=== PATIENT | female | born 1955 | race Caucasian/White ===

== ENCOUNTER 2017-01-27 09:18 | Day surgery (SDC) | payer MEDICARE ==
[2017-01-27] MEDS ORDERED: Lactated Ringer's 500 ML IV ONE (09:37)
[2017-01-27] MEDS ORDERED: Propofol 10 mg/ml Inj (20 ML) ONE (10:13)
[2017-01-27 10:42] VITALS: TEMP 98
[2017-01-27 10:53] VITALS: BP 105/52; PULSE 67; RESP 18; O2SAT 100
== END 2017-01-27 11:11 | disposition home or self-care (01) ==
LOC: H.ENDO 09:18
PROVIDERS: ATTEND Internal Medicine Gastroenterology
DX: Z86.010 Personal history of colon polyps (principal); K64.8 Other hemorrhoids
CPT/HCPCS: G0105; J2001; J2704; J7120

== ENCOUNTER 2018-10-25 06:16 | Inpatient (IN) | payer MEDICARE ==
[2018-10-11 15:19] VITALS: BMI 22.2
[2018-10-25] MEDS ORDERED: Lactated Ringer's 1,000 ML IV ONE ×2 (07:00→09:00)
[2018-10-25] MEDS ORDERED: Desflurane Inhalation Anesthetic Liq (240 ml) ONE (07:14)
[2018-10-25] MEDS ORDERED: ceFAZolin IV 1 gm in Dextrose 0 GM/0 ML BAG IVPB ONE (07:15)
[2018-10-25] MEDS ORDERED: Lidocaine 1% w Epi 1:100,000 Inj ONE (07:15)
[2018-10-25] MEDS ORDERED: Bupivacaine 0.5% Inj(30mL) ONE (07:15)
[2018-10-25] MEDS ORDERED: APROTININ/FIBRINOGEN(TISSEEL) ONE (07:16)
[2018-10-25] MEDS ORDERED: Midazolam 2 MG/2 ML VIAL ONE (07:22)
[2018-10-25] MEDS ORDERED: Succinylcholine Chloride 20 mg/ml Syr (5 ml) IV ONE (07:22)
[2018-10-25] MEDS ORDERED: Rocuronium 10 mg/ml (5 ml) ONE (07:22)
[2018-10-25] MEDS ORDERED: Lidocaine 4% (Laryng-O-Jet) Kit MM ONE (07:22)
[2018-10-25] MEDS ORDERED: Propofol 10 mg/ml Inj (20 ML) ONE (07:22)
--- NOTE | 2018-10-25 07:30 | CP.PCM.CON ---
History of Present Illness - History of Present Illness History of Present Illness: Neurosurgical H&P/consult: Dr. Ward Patient is a 63 y/o female who presents for elective lumbar laminotomy. The patient has had chronic lower back pain for many years which has progressively worsened over the past few months. She has been experiencing LE weakness since the summer with history of multiple falls. She has had occassional pain/numbness/tingling traveling to both LE over the past few months. The pain has hindered her daily activities, especially walking, turning and transferring. She has tried and failed conservative management with oral medications, chiropractic treatment and exercises and has opted for surgical management. She denies any bowel/bladder dysfunction and saddle paresthesias. She also denies CP/SOB/N/V/D/fever/dysuria/melena. PMD: Khurram Bocanegra MD PMH: depression, bipolar, chronic sinusitis PSH: tonsillectomy meds: ASA 81mg, claritin, klonopin, lamictal, paxil, seroquel, wellbutrin allergy: NKDA SH: denies ETOH/tobacco use. admits to marijuana use Review of Systems - Review of Systems All systems: reviewed and no additional remarkable complaints except Review of Systems: as per HPI Past Patient History - Past Medical History & Family History Past Medical History?: Yes Past Family History: Reviewed and not pertinent - Past Social History Smoking Status: Never Smoked Alcohol: None Drugs: Cannabis - CARDIAC Hx Cardiac Disorders: No - PULMONARY Hx Respiratory Disorders: No - NEUROLOGICAL Hx Neurological Disorder: No - HEENT Hx HEENT Problems: No - RENAL Hx Chronic Kidney Disease: No - ENDOCRINE/METABOLIC Hx Endocrine Disorders: No - HEMATOLOGICAL/ONCOLOGICAL Hx Blood Disorders: No - INTEGUMENTARY Hx Dermatological Problems: No - MUSCULOSKELETAL/RHEUMATOLOGICAL Hx Musculoskeletal Disorders: Yes Hx Back Pain: Yes - GASTROINTESTINAL Hx Gastrointestinal Disorders: Yes - GENITOURINARY/GYNECOLOGICAL Hx Genitourinary Disorders: No - PSYCHIATRIC Hx Psychophysiologic Disorder: Yes Hx Bipolar Disorder: Yes - SURGICAL HISTORY Hx Surgeries: Yes Hx Tonsillectomy: Yes - ANESTHESIA Hx Anesthesia: Yes Hx Anesthesia Reactions: No Hx Malignant Hyperthermia: No Has any member of the family had a problem w/ anesthesia?: No Meds Allergies/Adverse Reactions: Allergies Allergy/AdvReac Type Severity Reaction Status Date / Time Penicillins Allergy Intermediate RASH Verified 10/11/18 15:04 OYSTERS Allergy RASH Uncoded 10/11/18 15:23 Physical Exam - Constitutional Appears: Well, No Acute Distress - Head Exam Head Exam: ATRAUMATIC, NORMOCEPHALIC - Eye Exam Eye Exam: EOMI, Normal appearance, PERRL - ENT Exam ENT Exam: Mucous Membranes Moist - Neck Exam Neck exam: Positive for: Normal Inspection - Respiratory Exam Respiratory Exam: NORMAL BREATHING PATTERN - Cardiovascular Exam Cardiovascular Exam: +S1, +S2 - GI/Abdominal Exam GI & Abdominal Exam: Soft. absent: Tenderness - Back Exam Back exam: NORMAL INSPECTION - Expanded Back Exam Expanded Back exam: Negative Straight Leg Raising: Left, Right - Neurological Exam Neurological exam: Alert, CN II-XII Intact, Oriented x3, Reflexes Normal Additional comments: lumbar midline tenderness, no paraspinal tenderness no lesion/masses/deformities sensation intact SP/DP/TN motor intact EHL/FHl/TA/G - Psychiatric Exam Psychiatric exam: Normal Affect - Skin Skin Exam: Normal Color, Warm Results - Labs Labs: Laboratory Results - last 24 hr 10/25/18 06:35 BBK History Checked No verified bt Assessment & Plan (1) Lumbar spondylosis Assessment and Plan: -OR today for lumbar laminotomy and fusion -Risks/benefits/alternatives were explained to patient who understands and agrees to proceed with above procedure -NPO -Admit to Dr. Bocanegra -above d/w Dr. Ward in agreement Status: Acute
[2018-10-25] MEDS ORDERED: Dexamethasone 4 mg/1 ml ONE (08:20)
[2018-10-25] MEDS ORDERED: Neostigmine 1:1000 (1 mg/ml) Inj ONE (08:56)
[2018-10-25] MEDS ORDERED: HEMOSTATIC MATRIX 10 ML DIS.NEEDLE TOP ONE (09:00)
[2018-10-25] MEDS ORDERED: Bupivacaine 0.5% 50 ML IJ ONE ×2 (09:18→09:30)
--- NOTE | 2018-10-25 09:51 | PCM.SURG1 ---
Surgeon's Initial Post Op Note - Surgeon's Notes Surgeon: Clark Ward MD Psychologist Research Assistant: Jimenez Reza PA-C Type of Anesthesia: General Endo Anesthesia Administered By: Varinder Naranjo MD Pre-Operative Diagnosis: Lumbar spondylosis Operative Findings: see complete operative report Post-Operative Diagnosis: as above Operation Performed: L2-L3 laminotomy and instrumental fusion Specimen/Specimens Removed: none Estimated Blood Loss: EBL {In ML}: 50 Blood Products Given: N/A Drains Used: William Cadena (x 2 b/l) Post-Op Condition: Good Date of Surgery/Procedure: 10/25/18 Time of Surgery/Procedure: 08:06
[2018-10-25] MEDS ORDERED: Oxycodone/Acetaminophen 5/325 mg Tab PO PRN ×2 (09:53)
[2018-10-25] MEDS ORDERED: Dexamethasone 4 mg/1 ml IVP PRN (10:02)
[2018-10-25] MEDS ORDERED: HYDROmorphone 0.5 mg/0.5 ml ISec IVP PRN ×2 (10:02→11:36)
--- NOTE | 2018-10-25 13:50 | OP ---
PROCEDURE DATE: 10/25/2018 PREOPERATIVE DIAGNOSIS: Lumbar spondylosis. POSTOPERATIVE DIAGNOSIS: Lumbar spondylosis. PROCEDURES: L2-3 lumbar laminectomy, L2-3 pedicle screw fixation instrumentation using spinal elements, L2-3 posterolateral fusion. SURGEON: Clark Ward MD. PER DIEM PHYSICAL THERAPIST ASSISTANT: Jimenez Reza. Jimenez Reza is a physician community program assistant, who helped me in performing the surgery, stayed throughout the case from the beginning to the end. DESCRIPTION OF PROCEDURE: The patient was brought to the operating room and after general endotracheal anesthesia, placed in a prone position on a William table. Care was taken to protect all the pressure points. Back of the lumbar area thoroughly prepped and draped in a same sterile manner after marking the skin incisions for lumbar laminectomy and fusion at L2-3. After prepping and draping the area, skin has been incised. Bleeding skin has been controlled with bipolar junior assistant manager. Using a Bovie junior assistant manager, paraspinal muscles had been detached, attachments of spinous process, lamina on the left side at L2-3. Deep retractor had been applied. Identification of levels has been done with the help of fluoroscopy. By using a traditional landmark, point of entry has been noted at pedicles of L2 and L3. Initially, K-wire and later drill has been used around the pedicle. Polyaxial titanium screws of spinal elements have been placed of the pedicles of L2 and L3 under fluoroscopy care control. The bone was found to be soft in this area of the pedicles and titanium rods have been placed. Cap nuts have been used in order to secure them. After that, under microscopic magnification and illumination, the spine process of L2-3 have been removed. By using a high-speed drill, the lamina and medial port of the facets have been drilled to actual thickness. By using a fine Kerrison punch, thinned out the lamina, medial part of the facets, ligamentum flavum which was buckled and thickened has been removed decompressing the area of L2-3. After the lateral aspect of facet joint and transverse process have been decorticated, demineralized bone was placed in the area achieving a posterolateral fusion. After that, hemostasis was best achieved. William drain was placed in the wound and brought out through a separate stab neck skin incision. Muscles and fascia were closed with 1 Vicryl, subcutaneous tissue with 3-0 Vicryl, and the skin has been with intradermal 3-0 Vicryl stitches. The patient tolerated the procedure. After the procedure, mobilized to the recovery room. Clark Ward MD
[2018-10-25] MEDS ORDERED: Dexamethasone 4 MG in Sodium Chloride 0.9% 50 ML IVPB SCH (14:13)
--- NOTE | 2018-10-25 16:23 | RAD ---
Date of service: 10/25/2018 PROCEDURE: Intraoperative Fluoroscopy. HISTORY: PLIF FINDINGS: Fluoroscopic assistance was provided for laminectomy and fusion. Please refer to the operative report from JORGE Machado. Total fluoroscopic time (continuous mode) utilized during the procedure 39.9 seconds. Total exam DLP: 18.12 (mGy).
[2018-10-25] MEDS: Dexamethasone 4 mg/1 ml IV SCH ×2 (16:40→22:17)
[2018-10-25] MEDS: Clindamycin 600mg/50ml D5W 600 MG/50 ML VIAL IVPB SCH (17:24)
--- NOTE | 2018-10-25 18:27 | CP.PCM.HP ---
History of Present Illness - History of Present Illness History of Present Illness: Patient is a 63 y/o female who presents for elective lumbar laminotomy. The patient has Hx of chronic lower back pain for many years. This condition has progressively worsened over the past few months. She has been experiencing LE weakness for several months of 2017 with history of multiple falls. She c/o occasional pain/numbness/tingling traveling to both LE. The discomfort and pain was interfering with her daily activities,walking, turning and transferring. She has tried and failed conservative management with oral medications, chiropractic treatment and exercises and has opted for surgical management. She denies any bowel/bladder dysfunction and saddle paresthesias. She also denies CP/SOB/N/V/D/fever/dysuria/melena. At present in post OP comfortable not in distress in good mood. Present on Admission - Present on Admission Any Indicators Present on Admission: No Review of Systems - Constitutional Constitutional: As Per HPI - EENT Eyes: As Per HPI - Cardiovascular Cardiovascular: As Per HPI - Respiratory Respiratory: As Per HPI - Gastrointestinal Gastrointestinal: As Per HPI - Musculoskeletal Musculoskeletal: As Per HPI - Neurological Neurological: As Per HPI - Endocrine Endocrine: As Per HPI Past Patient History - Past Medical History & Family History Past Medical History?: Yes Past Family History: Reviewed and not pertinent - Past Social History Smoking Status: Never Smoked Alcohol: None Drugs: Cannabis - CARDIAC Hx Cardiac Disorders: No - PULMONARY Hx Respiratory Disorders: No - NEUROLOGICAL Hx Neurological Disorder: No - HEENT Hx HEENT Problems: No - RENAL Hx Chronic Kidney Disease: No - ENDOCRINE/METABOLIC Hx Endocrine Disorders: No - HEMATOLOGICAL/ONCOLOGICAL Hx Blood Disorders: No - INTEGUMENTARY Hx Dermatological Problems: No - MUSCULOSKELETAL/RHEUMATOLOGICAL Hx Musculoskeletal Disorders: Yes Hx Back Pain: Yes - GASTROINTESTINAL Hx Gastrointestinal Disorders: Yes - GENITOURINARY/GYNECOLOGICAL Hx Genitourinary Disorders: No - PSYCHIATRIC Hx Psychophysiologic Disorder: Yes Hx Bipolar Disorder: Yes - SURGICAL HISTORY Hx Surgeries: Yes Hx Tonsillectomy: Yes - ANESTHESIA Hx Anesthesia: Yes Hx Anesthesia Reactions: No Hx Malignant Hyperthermia: No Has any member of the family had a problem w/ anesthesia?: No Meds Allergies/Adverse Reactions: Allergies Allergy/AdvReac Type Severity Reaction Status Date / Time Penicillins Allergy Intermediate RASH Verified 10/11/18 15:04 OYSTERS Allergy RASH Uncoded 10/11/18 15:23 Physical Exam - Constitutional Appears: Non-toxic - Head Exam Head Exam: ATRAUMATIC, NORMAL INSPECTION, NORMOCEPHALIC - Eye Exam Eye Exam: Normal appearance - ENT Exam ENT Exam: Mucous Membranes Moist - Neck Exam Neck exam: Positive for: Normal Inspection - Respiratory Exam Respiratory Exam: Clear to Auscultation Bilateral - Cardiovascular Exam Cardiovascular Exam: REGULAR RHYTHM, +S1, +S2 - GI/Abdominal Exam GI & Abdominal Exam: Normal Bowel Sounds - Rectal Exam Rectal Exam: Deferred - Extremities Exam Extremities exam: Positive for: normal inspection - Neurological Exam Neurological exam: Abnormal Gait, Alert, CN II-XII Intact, Oriented x3 - Psychiatric Exam Psychiatric exam: Normal Affect - Skin Skin Exam: Normal Color Results - Vital Signs Recent Vital Signs: Last Vital Signs Temp 98 F 10/25/18 16:30 Pulse 75 10/25/18 16:30 Resp 20 10/25/18 16:30 BP 100/56 L 10/25/18 16:30 Pulse Ox 98 10/25/18 16:30 - Labs Labs: Laboratory Results - last 24 hr 10/25/18 10/25/18 06:35 08:14 Blood Type A NEGATIVE Blood Type Confirm A NEGATIVE Antibody Screen Negative BBK History Checked No verified bt Assessment & Plan (1) Lumbar spondylosis Status: Acute
[2018-10-25] MEDS: Morphine 4 MG/ML VIAL IVP PRN (21:20)
[2018-10-25] MEDS: Docusate-Senna 50 mg-8.6 mg Tab PO SCH (22:17)
[2018-10-26] MEDS: Clindamycin 600mg/50ml D5W 600 MG/50 ML VIAL IVPB SCH ×3 (00:47→16:31)
[2018-10-26] MEDS: Dexamethasone 4 mg/1 ml IV SCH ×3 (04:00→16:32)
[2018-10-26 04:41] VITALS: RESP 20
[2018-10-26 06:25] LABS: HEMOGLOBIN 11.5 g/dL (12.0-16.0); MEAN CELL VOLUME 93.3 fl (81.0-99.0); MEAN CORPUSCULAR HEMOGLOBIN 31.8 pg (27.0-31.0); MEAN CORPUSCULAR HGB CONC 34.1 g/dL (33.0-37.0); RBC 3.61 Mil/uL (3.80-5.20); WHITE BLOOD COUNT 10.9 K/uL (4.8-10.8)
[2018-10-26 06:35] LABS: BLOOD UREA NITROGEN 20 mg/dl (7-17); CALCIUM 9.3 mg/dL (8.4-10.2)
[2018-10-26 06:56] LABS: GFR NON-AFRICAN AMERICAN 56
--- NOTE | 2018-10-26 08:46 | CP.PCM.PN ---
Subjective - Date & Time of Evaluation Date of Evaluation: 10/26/18 Time of Evaluation: 07:45 - Subjective Subjective: Patient seen and examined at bedside comfortable. Pain well controlled. Tolerated PT well yesterday. Able to transfer to bathroom unassisted. No acute events overnight, no other complaints. Denies CP/SOB/N/fever. Objective - Vital Signs/Intake and Output Vital Signs (last 24 hours): Temp Pulse Resp BP Pulse Ox 98 F 65 20 149/82 99 10/26/18 08:25 10/26/18 08:25 10/26/18 08:25 10/26/18 08:25 10/26/18 08:25 Intake and Output: 10/26/18 10/26/18 06:59 18:59 Intake Total 800 Output Total 180 Balance 620 - Medications Medications: Current Medications Acetaminophen (Tylenol 325mg Tab) 650 mg PO Q4 PRN PRN Reason: Fever 101 degrees fahrenheit Aspirin (Aspirin Chewable) 81 mg PO DAILY [facility] Bupropion HCl (Wellbutrin) 375 mg PO DAILY [facility] Clonazepam (Klonopin) 1 mg PO BID [facility] Last Admin: 10/25/18 17:33 Dose: Not Given Cyclobenzaprine HCl (Flexeril) 10 mg PO Q8 PRN PRN Reason: Muscle spasm Dexamethasone (Decadron Inj) 4 mg IV Q6 [facility] Last Admin: 10/26/18 04:00 Dose: Not Given Clindamycin Phosphate (Cleocin) 600 mg in 50 mls @ 100 mls/hr IVPB Q8 [facility]; Protocol Last Admin: 10/26/18 00:47 Dose: 100 mls/hr Lactated Ringer's (Lactated Ringer's) 1,000 mls @ 100 mls/hr IV .Q10H [facility] Lactated Ringer's (Lactated Ringer's) 1,000 mls @ 150 mls/hr IV .Q6H40M [facility] Lamotrigine (Lamictal) 150 mg PO DAILY [facility] Morphine Sulfate (Morphine) 2 mg IVP Q4 PRN PRN Reason: Pain, severe (8-10) Last Admin: 10/25/18 21:20 Dose: 2 mg Ondansetron HCl (Zofran Inj) 4 mg IVP ONCE PRN PRN Reason: Nausea/Vomiting Oxycodone/Acetaminophen (Percocet 5/325 Mg Tab) 2 tab PO Q4 PRN PRN Reason: Pain, moderate (4-7) Stop: 10/28/18 09:54 Last Admin: 10/25/18 17:29 Dose: 2 tab Oxycodone/Acetaminophen (Percocet 5/325 Mg Tab) 1 tab PO Q4 PRN PRN Reason: Pain, Mild (1-3) Stop: 10/28/18 09:54 Paroxetine HCl (Paxil) 20 mg PO BID [facility] Last Admin: 10/25/18 17:32 Dose: Not Given Quetiapine Fumarate (Seroquel) 75 mg PO BID [facility] Last Admin: 10/25/18 17:24 Dose: 75 mg Senna/Docusate Sodium (Senokot S 50 Mg-8.6 Mg) 2 tab PO HS [facility] Last Admin: 10/25/18 22:17 Dose: 2 tab - Labs Labs: 10/26/18 05:55 10/26/18 05:55 - Back Exam Additional comments: Dressings intact, mild bloody drainage from drain sites mild bloody drainage to BUSHRA Drains (90cc b/l in 24 hrs) mild cristy-incisional tenderness sensation intact SP/DP/TN motor intact EHL/FHL neg SLR b/l Assessment and Plan (1) Lumbar spondylosis Assessment & Plan: POD#1 s/p L2-3 laminotomy and fusion -Maintain BUSHRA drains, monitor output, possible removal tomorrow -PT/OT -Decadron taper -d/w planning -above d/w Dr. Ward in agreement Status: Acute
[2018-10-26] MEDS: Lactated Ringer's 1,000 ML IV SCH ×4 (09:43→16:35)
[2018-10-26] MEDS: Morphine 4 MG/ML VIAL IVP PRN ×2 (10:04→21:19)
--- NOTE | 2018-10-26 11:16 | CP.PCM.PN ---
Subjective - Date & Time of Evaluation Date of Evaluation: 10/26/18 Time of Evaluation: 11:17 - Subjective Subjective: Patient improving well. Still c/o same discomfort controlled with analgesics. Objective - Vital Signs/Intake and Output Vital Signs (last 24 hours): Temp Pulse Resp BP Pulse Ox 98 F 65 20 149/82 99 10/26/18 08:25 10/26/18 08:25 10/26/18 08:25 10/26/18 08:25 10/26/18 08:25 Intake and Output: 10/25/18 10/26/18 23:59 11:59 Intake Total 800 Output Total 175 80 Balance 625 -80 - Medications Medications: Current Medications Acetaminophen (Tylenol 325mg Tab) 650 mg PO Q4 PRN PRN Reason: Fever 101 degrees fahrenheit Aspirin (Aspirin Chewable) 81 mg PO DAILY [facility] Last Admin: 10/26/18 09:38 Dose: 81 mg Bupropion HCl (Wellbutrin) 375 mg PO DAILY [facility] Last Admin: 10/26/18 09:45 Dose: 375 mg Clonazepam (Klonopin) 1 mg PO BID [facility] Last Admin: 10/26/18 09:43 Dose: 1 mg Cyclobenzaprine HCl (Flexeril) 10 mg PO Q8 PRN PRN Reason: Muscle spasm Dexamethasone (Decadron Inj) 4 mg IV Q6 [facility] Last Admin: 10/26/18 09:38 Dose: 4 mg Clindamycin Phosphate (Cleocin) 600 mg in 50 mls @ 100 mls/hr IVPB Q8 [facility]; Protocol Last Admin: 10/26/18 09:37 Dose: 100 mls/hr Lactated Ringer's (Lactated Ringer's) 1,000 mls @ 100 mls/hr IV .Q10H [facility] Last Admin: 10/26/18 09:43 Dose: Not Given Lactated Ringer's (Lactated Ringer's) 1,000 mls @ 150 mls/hr IV .Q6H40M [facility] Last Admin: 10/26/18 09:58 Dose: Not Given Lamotrigine (Lamictal) 150 mg PO DAILY [facility] Last Admin: 10/26/18 09:44 Dose: 150 mg Morphine Sulfate (Morphine) 2 mg IVP Q4 PRN PRN Reason: Pain, severe (8-10) Last Admin: 10/26/18 10:04 Dose: 2 mg Ondansetron HCl (Zofran Inj) 4 mg IVP ONCE PRN PRN Reason: Nausea/Vomiting Oxycodone/Acetaminophen (Percocet 5/325 Mg Tab) 2 tab PO Q4 PRN PRN Reason: Pain, moderate (4-7) Stop: 10/28/18 09:54 Last Admin: 10/25/18 17:29 Dose: 2 tab Oxycodone/Acetaminophen (Percocet 5/325 Mg Tab) 1 tab PO Q4 PRN PRN Reason: Pain, Mild (1-3) Stop: 10/28/18 09:54 Paroxetine HCl (Paxil) 20 mg PO BID [facility] Last Admin: 10/26/18 09:44 Dose: 20 mg Quetiapine Fumarate (Seroquel) 75 mg PO BID [facility] Last Admin: 10/26/18 09:45 Dose: 75 mg Senna/Docusate Sodium (Senokot S 50 Mg-8.6 Mg) 2 tab PO HS [facility] Last Admin: 10/25/18 22:17 Dose: 2 tab - Labs Labs: 10/26/18 05:55 10/26/18 05:55 - Constitutional Appears: Non-toxic - Head Exam Head Exam: ATRAUMATIC, NORMAL INSPECTION, NORMOCEPHALIC - Eye Exam Eye Exam: Normal appearance - ENT Exam ENT Exam: Mucous Membranes Moist - Neck Exam Neck Exam: Full ROM - Respiratory Exam Respiratory Exam: Clear to Ausculation Bilateral - Cardiovascular Exam Cardiovascular Exam: REGULAR RHYTHM, +S1, +S2 - GI/Abdominal Exam GI & Abdominal Exam: Normal Bowel Sounds - Extremities Exam Extremities Exam: Normal Inspection - Neurological Exam Neurological Exam: Alert, Awake, Oriented x3 - Psychiatric Exam Psychiatric exam: Normal Affect - Skin Skin Exam: Normal Color Assessment and Plan (1) Lumbar spondylosis Status: Acute (2) Depression Status: Chronic (3) Schizo affective schizophrenia Status: Chronic - Assessment and Plan (Free Text) Plan: Continue present rx will follow neuro surgery consult.
[2018-10-26] MEDS: Docusate-Senna 50 mg-8.6 mg Tab PO SCH (21:20)
[2018-10-27] MEDS: Dexamethasone 4 mg/1 ml IV SCH ×2 (00:59→09:16)
[2018-10-27] MEDS: Clindamycin 600mg/50ml D5W 600 MG/50 ML VIAL IVPB SCH ×2 (00:59→09:13)
[2018-10-27 06:42] LABS: HEMOGLOBIN 11.5 g/dL (12.0-16.0); MEAN CELL VOLUME 94.4 fl (81.0-99.0); MEAN CORPUSCULAR HEMOGLOBIN 31.8 pg (27.0-31.0); MEAN CORPUSCULAR HGB CONC 33.7 g/dL (33.0-37.0); RBC 3.6 Mil/uL (3.80-5.20); RED CELL DISTRIBUTION WIDTH 13.5 % (11.5-14.5); WHITE BLOOD COUNT 10.6 K/uL (4.8-10.8)
[2018-10-27 06:56] LABS: BLOOD UREA NITROGEN 18 mg/dl (7-17); CALCIUM 9.5 mg/dL (8.4-10.2); GFR NON-AFRICAN AMERICAN 56
[2018-10-27 08:29] VITALS: BP 169/80; PULSE 84; TEMP 98.6; O2SAT 97
[2018-10-27] MEDS: Lactated Ringer's 1,000 ML IV SCH ×2 (09:12→12:07)
--- NOTE | 2018-10-27 11:28 | CP.PCM.PN ---
Subjective - Date & Time of Evaluation Date of Evaluation: 10/27/18 Time of Evaluation: 11:45 - Subjective Subjective: Patient states pain is well controlled. Tolerating pt well. Denies numbness/tingling. Objective - Vital Signs/Intake and Output Vital Signs (last 24 hours): Temp Pulse Resp BP Pulse Ox 98.6 F 84 20 169/80 H 97 10/27/18 08:28 10/27/18 08:28 10/27/18 08:28 10/27/18 08:28 10/27/18 08:28 Intake and Output: 10/27/18 10/27/18 06:59 18:59 Output Total 60 Balance -60 - Medications Medications: Current Medications Acetaminophen (Tylenol 325mg Tab) 650 mg PO Q4 PRN PRN Reason: Fever 101 degrees fahrenheit Aspirin (Aspirin Chewable) 81 mg PO DAILY [facility] Last Admin: 10/27/18 09:17 Dose: 81 mg Bupropion HCl (Wellbutrin) 375 mg PO DAILY [facility] Last Admin: 10/27/18 09:15 Dose: 375 mg Clonazepam (Klonopin) 1 mg PO BID [facility] Last Admin: 10/27/18 09:21 Dose: 1 mg Cyclobenzaprine HCl (Flexeril) 10 mg PO Q8 PRN PRN Reason: Muscle spasm Dexamethasone (Decadron Inj) 4 mg IV Q8 [facility] Last Admin: 10/27/18 09:16 Dose: 4 mg Clindamycin Phosphate (Cleocin) 600 mg in 50 mls @ 100 mls/hr IVPB Q8 [facility]; Protocol Last Admin: 10/27/18 09:13 Dose: 100 mls/hr Lactated Ringer's (Lactated Ringer's) 1,000 mls @ 100 mls/hr IV .Q10H [facility] Last Admin: 10/26/18 16:35 Dose: Not Given Lactated Ringer's (Lactated Ringer's) 1,000 mls @ 150 mls/hr IV .Q6H40M [facility] Last Admin: 10/27/18 09:12 Dose: Not Given Lamotrigine (Lamictal) 150 mg PO DAILY [facility] Last Admin: 10/27/18 09:16 Dose: 150 mg Morphine Sulfate (Morphine) 2 mg IVP Q4 PRN PRN Reason: Pain, severe (8-10) Last Admin: 10/26/18 21:19 Dose: 2 mg Ondansetron HCl (Zofran Inj) 4 mg IVP ONCE PRN PRN Reason: Nausea/Vomiting Oxycodone/Acetaminophen (Percocet 5/325 Mg Tab) 2 tab PO Q4 PRN PRN Reason: Pain, moderate (4-7) Stop: 10/28/18 09:54 Last Admin: 10/25/18 17:29 Dose: 2 tab Oxycodone/Acetaminophen (Percocet 5/325 Mg Tab) 1 tab PO Q4 PRN PRN Reason: Pain, Mild (1-3) Stop: 10/28/18 09:54 Paroxetine HCl (Paxil) 20 mg PO BID [facility] Last Admin: 10/27/18 09:14 Dose: 20 mg Quetiapine Fumarate (Seroquel) 100 mg PO DAILY [facility] Last Admin: 10/27/18 08:37 Dose: Not Given Quetiapine Fumarate (Seroquel) 100 mg PO HS [facility] Quetiapine Fumarate (Seroquel) 25 mg PO DAILY [facility] Last Admin: 10/27/18 08:37 Dose: Not Given Senna/Docusate Sodium (Senokot S 50 Mg-8.6 Mg) 2 tab PO HS [facility] Last Admin: 10/26/18 21:20 Dose: 2 tab - Labs Labs: 10/27/18 06:10 10/27/18 06:10 - Back Exam Additional comments: incision intact, dry, no erythema, JPs pulled per Dr. Ward, telfa/tegaderm dressing applied +ROM ankle/toes, sensation intact +DP/PT Pulses Assessment and Plan (1) Lumbar spondylosis Assessment & Plan: last 12 40-20cc, pull drains per Dr. Ward d/c home today pain medication and decadron taper as per Dr. Bocanegra d/w Dr. Ward, agrees with above Status: Acute
--- NOTE | 2018-10-27 13:05 | CP.PCM.DIS ---
Provider - Provider Date of Admission: 10/25/18 09:53 Attending physician: Khurram Bocanegra MD Consults: 10/25/18 09:53 Case Management Referral Routine Comment: Physician Instructions: Reason For Exam: Reason for Referral: Discharge Planning 10/26/18 08:42 Physician Consult Routine Comment: Consulting Provider: Clark Aden Consulting Physician: Clark Aden Reason for Consult: neurosurg postop mgmt Time Spent in preparation of Discharge (in minutes): 30 Diagnosis - Discharge Diagnosis (1) Lumbar spondylosis Status: Acute (2) Depression Status: Chronic (3) Schizo affective schizophrenia Status: Chronic Hospital Course - Lab Results Lab Results: Most Recent Lab Values WBC 10.6 K/uL (4.8-10.8) 10/27/18 06:10 RBC 3.60 Mil/uL (3.80-5.20) L 10/27/18 06:10 Hgb 11.5 g/dL (12.0-16.0) L 10/27/18 06:10 Hct 34.0 % (34.0-47.0) 10/27/18 06:10 MCV 94.4 fl (81.0-99.0) 10/27/18 06:10 MCH 31.8 pg (27.0-31.0) H 10/27/18 06:10 MCHC 33.7 g/dL (33.0-37.0) 10/27/18 06:10 RDW 13.5 % (11.5-14.5) 10/27/18 06:10 Plt Count 238 K/uL (130-400) 10/27/18 06:10 Sodium 141 mmol/l (132-148) 10/27/18 06:10 Potassium 4.7 MMOL/L (3.6-5.0) 10/27/18 06:10 Chloride 104 mmol/L (98-107) 10/27/18 06:10 Carbon Dioxide 29 mmol/L (22-30) 10/27/18 06:10 Anion Gap 13 (10-20) 10/27/18 06:10 BUN 18 mg/dl (7-17) H 10/27/18 06:10 Creatinine 1.0 mg/dl (0.7-1.2) 10/27/18 06:10 Est GFR ( Amer) > 60 10/27/18 06:10 Est GFR (Non-Af Amer) 56 10/27/18 06:10 Random Glucose 124 mg/dL (65-105) H 10/27/18 06:10 Calcium 9.5 mg/dL (8.4-10.2) 10/27/18 06:10 Blood Type A NEGATIVE 10/25/18 06:35 Blood Type Confirm A NEGATIVE 10/25/18 08:14 Antibody Screen Negative 10/25/18 06:35 BBK History Checked No verified bt 10/25/18 06:35 - Hospital Course Hospital Course: Patient is a 63 y/o female who presents for elective lumbar laminotomy. The patient has Hx of chronic lower back pain for many years. This condition has progressively worsened over the past few months. She has been experiencing LE weakness for several months of 2017 with history of multiple falls. She c/o occasional pain/numbness/tingling traveling to both LE. The discomfort and pain was interfering with her daily activities,walking, turning and transferring. She has tried and failed conservative management with oral medications, chiropractic treatment and exercises and has opted for surgical management. She denies any bowel/bladder dysfunction and saddle paresthesias. She also denies CP/SOB/N/V/D/fever/dysuria/melena. At present in post OP comfortable not in distress in good mood. No focal deficit, Patient cleared for dc by neurosurgery. Discharge Exam - Head Exam Head Exam: ATRAUMATIC, NORMAL INSPECTION, NORMOCEPHALIC - Eye Exam Eye Exam: EOMI, Normal appearance Pupil Exam: PERRL - ENT Exam ENT Exam: Normal Exam - Neck Exam Neck exam: Full Rom - Respiratory Exam Respiratory Exam: Clear to PA & Lateral - Cardiovascular Exam Cardiovascular Exam: REGULAR RHYTHM, +S1, +S2 - GI/Abdominal Exam GI & Abdominal Exam: Normal Bowel Sounds - Extremities Exam Extremities exam: normal inspection - Neurological Exam Neurological exam: Alert, CN II-XII Intact, Normal Gait, Oriented x3, Reflexes Normal - Psychiatric Exam Psychiatric exam: Normal Affect Discharge Plan - Follow Up Plan Condition: GOOD Disposition: HOME/ ROUTINE Instructions: Laminectomy (DC) Additional Instructions: follow up with primary MD and dr aden 1 week per surgical PA may remove dressing where draining tubes were on tuesday. Referrals: Clark Aden MD [Staff Provider] - Khurram Bocanegra MD [Family Provider] -
== END 2018-10-27 15:25 | disposition home or self-care (01) | DRG 460 ==
LOC: H.OPSURG 06:16 → H.ERHOLD 09:53 → H.MEDSURG1 12:18
PROVIDERS: ADMIT Internal Medicine; ATTEND Internal Medicine
PROC: 0SB20ZZ Excision of Lumbar Vertebral Disc, Open Approach (ICD-10-PCS; 2018-10-25)
PROC: 0SG10J1 Fusion of 2 or more Lumbar Vertebral Joints with Synthetic Substitute, Posterior Approach, Posterior Column, Open Approach (ICD-10-PCS; principal; 2018-10-25 07:30)
DX: M47.816 Spondylosis without myelopathy or radiculopathy, lumbar region (principal); G89.29 Other chronic pain; F25.8 Other schizoaffective disorders; J32.9 Chronic sinusitis, unspecified; Z91.81 History of falling; Z88.0 Allergy status to penicillin

== ENCOUNTER 2019-03-10 08:37 | Emergency (ER) | payer MEDICARE ==
[2019-03-10 08:40] VITALS: BMI 22.9
[2019-03-10 08:41] VITALS: O2SAT 97
[2019-03-10] MEDS ORDERED: Sodium Chloride 0.9% 1,000 ML IV STA (09:54)
--- NOTE | 2019-03-10 10:09 | ED PDOC ---
HPI: General Adult Time Seen by Provider: 03/10/19 09:23 Chief Complaint (Nursing): Weakness/Neurological Deficit Chief Complaint (Provider): Weakness/Neurological Deficit History Per: Patient History/Exam Limitations: no limitations Onset/Duration Of Symptoms: Other (x2 weeks) Current Symptoms Are (Timing): Still Present Additional Complaint(s): Patient is a 63 y/o female with a PMHx of bipolar disorder and colonic polyps who presents to the ED for evaluation of increasing weakness and falls for the last two weeks. Patient claims she has been feeling so weak that she has been unable to get off of her couch or bed. Furthermore, patient complains of increasing pain and weakness to right upper extremities, nausea, as well as vomiting for the past two nights. Of note, patient had lumbar surgery in October of [address] Ward in this ED and has been unable to followup since. In addition, patient reports she used to go to a Chiropractor but has not been following up. Patient denies abdominal pain and is unable to tolerate PO at this time. PCP: Dr. Khurram Bocanegra Past Medical History Reviewed: Historical Data, Nursing Documentation, Vital Signs Vital Signs: Last Vital Signs Temp 99.4 F 03/10/19 08:40 Pulse 93 H 03/10/19 08:40 Resp 17 03/10/19 08:40 BP 187/87 H 03/10/19 08:40 Pulse Ox 97 03/10/19 08:40 Primary Care Provider: Khurram Bocanegra - Medical History PMH: Bipolar Disorder, Colonic Polyps Denies: Chronic Kidney Disease - Surgical History Surgical History: Tonsillectomy Other surgeries: lumbar surgery - Family History Family History: States: No Known Family Hx - Home Medications Home Medications: Ambulatory Orders Medication Instructions Recorded Aspirin [Adult Aspirin] 81 mg PO DAILY 10/11/18 Clonazepam [Klonopin] 1 mg PO BID 10/11/18 Lamotrigine [Lamictal] 150 mg PO DAILY 10/11/18 PARoxetine [Paxil] 20 mg PO BID 10/11/18 Quetiapine Fumarate [Seroquel] 75 mg PO BID 10/11/18 buPROPion [Wellbutrin] 375 mg PO DAILY 10/11/18 Acetaminophen [Tylenol 325mg tab] 650 mg PO Q4 PRN tab 10/27/18 Aspirin [Aspirin Chewable] 81 mg PO DAILY chew 10/27/18 Dexamethasone [Decadron] 4 mg PO Q12 #4 tab 10/27/18 buPROPion [Wellbutrin] 375 mg PO DAILY tab 10/27/18 clonazePAM [Klonopin] 1 mg PO BID tab 10/27/18 lamoTRIgine [Lamictal] 150 mg PO DAILY tab 10/27/18 - Allergies Allergies/Adverse Reactions: Allergies Allergy/AdvReac Type Severity Reaction Status Date / Time Penicillins Allergy Intermediate RASH Verified 03/10/19 09:11 OYSTERS Allergy RASH Uncoded 10/11/18 15:23 Review of Systems ROS Statement: Except As Marked, All Systems Reviewed And Found Negative Gastrointestinal: Positive for: Vomiting. Negative for: Nausea, Abdominal Pain Musculoskeletal: Positive for: Other (right upper extremity pain) Neurological: Positive for: Weakness, Headache Physical Exam - Reviewed Nursing Documentation Reviewed: Yes Vital Signs Reviewed: Yes - Physical Exam Appears: Positive for: In Acute Distress (tearful) Head Exam: Positive for: ATRAUMATIC, NORMAL INSPECTION, NORMOCEPHALIC Skin: Positive for: Normal Color, Warm, DRY Eye Exam: Positive for: EOMI, Normal appearance, PERRL Neck: Positive for: Normal, Painless ROM, Supple Cardiovascular/Chest: Positive for: Regular Rate, Rhythm. Negative for: Murmur Respiratory: Positive for: Normal Breath Sounds. Negative for: Respiratory Distress Gastrointestinal/Abdominal: Positive for: Normal Exam, Soft. Negative for: Tenderness Back: Positive for: Normal Inspection, Other (incision well healing with no swelling, erythema, or exudates). Negative for: L CVA Tenderness, R CVA Tenderness, Vertebral Tenderness Extremity: Positive for: Normal ROM (of upper extremity). Negative for: Pedal Edema, Deformity Neurological/Psych: Positive for: Alert, Oriented (x3), Gait (able to lift legs, however, unable to ambulate because patient is afraid she will fall) - Laboratory Results Result Diagrams: 03/10/19 10:20 03/10/19 10:20 - ECG O2 Sat by Pulse Oximetry: 97 (RA) Pulse Ox Interpretation: Normal Medical Decision Making Medical Decision Making: Time: 0954 Impression: Increased weakness to legs and increased falls after lower back s urgery. Exacerbation of upper arm pain consistent with radiculopathy. Plan: CT Cervical Spine w/o Contrast CT Lumbar Spine w/o Contrast CMP CBC IV fluids Zofran 4 mg IVP Wrist, Left 3 Views [Rad] Time: 1108 CT Cervical FINDINGS: VERTEBRAE: No fracture. Normal alignment. No destructive bony lesion. Advanced multilevel spondylosis appreciated at the inferior cervical spine. The odontoid process is intact although degenerative changes are advanced at the C1-2 articulation. Craniocervical junction appears intact. DISCS/SPINAL CANAL/NEURAL FORAMINA: Central canal and neural foramina at C2-3 are widely patent. At C3-4, moderate right degenerative neural foraminal stenosis appreciated which also includes osteophytes encroaching the right lateral recess somewhat. Central canal is nevertheless widely patent as well as left neural foramen. At C4-5, there is a severe right degenerative neural foraminal stenosis, which appears mild at the left due to degenerative osteophytes. Limited disc bulge without significant central canal stenosis. At C5-6, there is a efom-vc-[place] right degenerative neural foraminal stenosis with none identified at the left. Central canal is widely patent. At C6-7 and C7-T1, no stenosis is appreciated grossly. PARASPINAL SOFT TISSUES: Unremarkable. OTHER FINDINGS: None. IMPRESSION: 1. No acute fracture or spondylolisthesis identified. Multilevel degenerative spondylosis affects primarily inferior cervical levels. 2. Variable upper to mid neural foraminal stenosis predominate at the right side, seen worst at the C4-5 right C5 root foramen which is severely stenosed due to uncovertebral and facet arthropathy. 3. Added characterization of the cervical spine can provided by MRI if clinically warranted. Time: 1132 CT Lumbar FINDINGS: VERTEBRAE: Minimal grade 1 spondylolisthesis at L1-2 with L1 slightly posterior to L2. No spondylolysis throughout the examination. No compression fractures appreciated throughout the lumbar spine alignment normal inferior to the L2 vertebral body level down through the sacrum. Gross degenerative disease appreciated at L1-2, L3-4 and L4-5 where there is minimal residual disc space remaining combine with vacuum disc changes though there is only limited multilevel spondylosis throughout the lumbar spine. No additional spondylolisthesis. Patient status post posterior spinal fusion by transpedicular screws at L2 and L3 which are connected by rods at each side posteriorly. Further, patient seen to be status post bilateral L2 laminectomies. DISCS/SPINAL CANAL/NEURAL FORAMINA: L1-2: Moderate degenerative bilateral neural foraminal stenoses are appreciated due to osteophytes as well as spondylolisthesis with the central canal mildly stenosed due to spondylolisthesis and posterior osteophytic ridging. L2-3: The central canal is decompressed posteriorly by laminectomies bilaterally though the upper portion of this level remains mildly stenosed. Mild bilateral neural foraminal stenosis results from disc osteophyte complex la teral components symmetrically. Prior bilateral L2 laminectomies identified. L3-4: A large posterior disc bulge is appreciated combining with prominent facet arthropathy resulting in a severe central canal stenosis with [id number] bilateral degenerative neural foraminal stenoses present. L4-5: Limited posterior disc bulge flattens the ventral thecal sac without causing generalized central canal stenosis. Mild bilateral degenerative neural foraminal stenoses are identified. L5-S1: Limited posterior osteophytic ridge is identified without central canal or neural foraminal stenosis bilaterally. PARASPINAL SOFT TISSUES: Unremarkable. OTHER FINDINGS: None. IMPRESSION: 1. No acute fractures identified. Grade 1 L1-2 spondylolisthesis is minimal in this patient status post limited bilateral laminectomies at L2 with posterior spinal fusion at L2 and L3 levels. 2. Decompression of the L2-3 disc interspace is appreciated with the upper portion at this level appearing mildly stenosed. Mild bilateral neural foraminal stenoses are degenerative at this level. 3. Severe degenerative central stenosis L3-4. 4. Limited multilevel bilateral degenerative neural foraminal stenoses. Time: [address] Bocanegra who feels patient will benefit from admission and neuro logic workup. Dr. Tommie hugo. Time: 1445 Patient now refusing to stay. Patient has been walking around exam room and has already dressed herself. Advised to followup with neurologist and primary m edical doctor. Scribe Attestation: Documented by Wing Mahmood, acting as a scribe for Tita Brian MD. Provider Scribe Attestation: All medical record entries made by the Scribe were at my direction and personally dictated by me. I have reviewed the chart and agree that the record accurately reflects my personal performance of the history, physical exam, med ica decision making, and the department course for this patient. I have also personally directed, reviewed, and agree with the discharge instructions and disposition. Disposition - Clinical Impression Clinical Impression: Degenerative disc disease, lumbar - Disposition Referrals: Glynn Rain MD [Medical Doctor] - Disposition Time: 14:45 Condition: IMPROVED Additional Instructions: Follow up with primary medical doctor, neurologist, and psychiatrist. Return to the emergency department if symptoms worsen or if new symptoms develop. Instructions: Degenerative Disc Disease (DC) Forms: [employer] ([place]) Print Language: BELARUSIAN
[2019-03-10 10:35] LABS: BASO % 0.3 % (0.0-2.0); EOS # 0.3 K/uL (0.0-0.7); LYMPH # 1.3 K/uL (1.0-4.3); MEAN CELL VOLUME 90.4 fl (81.0-99.0); MEAN CORPUSCULAR HEMOGLOBIN 30.8 pg (27.0-31.0); MEAN CORPUSCULAR HGB CONC 34.1 g/dL (33.0-37.0); MEAN PLATELET VOLUME 7.3 fl (7.2-11.7); MONO # 0.5 K/uL (0.0-0.8); NEUT # 6.3 K/uL (1.8-7.0); NEUT % 74.7 % (50.0-75.0); RBC 4.22 Mil/uL (3.80-5.20); RED CELL DISTRIBUTION WIDTH 12.9 % (11.5-14.5); WHITE BLOOD COUNT 8.4 K/uL (4.8-10.8)
[2019-03-10 10:40] LABS: ALB/GLOB RATIO 1.6 (1.0-2.1); ALBUMIN 4.6 g/dL (3.5-5.0); ALT/SGPT 26 U/L (9-52); AST/SGOT 33 U/L (14-36); BLOOD UREA NITROGEN 19 mg/dl (7-17); CALCIUM 9.5 mg/dL (8.4-10.2); GFR NON-AFRICAN AMERICAN 50
--- NOTE | 2019-03-10 11:12 | CT ---
Date of service: 03/10/2019 PROCEDURE: CT Cervical Spine without contrast HISTORY: decreased strenght and pain/numb to RUE COMPARISON: None available. TECHNIQUE: Axial computed tomography images were obtained of the cervical spine without the use of intravenous contrast. Coronal and sagittal reformatted images were created and reviewed. Radiation dose: Total exam DLP = 309.32 mGy-cm. This CT exam was performed using one or more of the following dose reduction techniques: Automated exposure control, adjustment of the mA and/or kV according to patient size, and/or use of iterative reconstruction technique. FINDINGS: VERTEBRAE: No fracture. Normal alignment. No destructive bony lesion. Advanced multilevel spondylosis appreciated at the inferior cervical spine. The odontoid process is intact although degenerative changes are advanced at the C1-2 articulation. Craniocervical junction appears intact. DISCS/SPINAL CANAL/NEURAL FORAMINA: Central canal and neural foramina at C2-3 are widely patent. At C3-4, moderate right degenerative neural foraminal stenosis appreciated which also includes osteophytes encroaching the right lateral recess somewhat. Central canal is nevertheless widely patent as well as left neural foramen. At C4-5, there is a severe right degenerative neural foraminal stenosis, which appears mild at the left due to degenerative osteophytes. Limited disc bulge without significant central canal stenosis. At C5-6, there is a [id number] right degenerative neural foraminal stenosis with none identified at the left. Central canal is widely patent. At C6-7 and C7-T1, no stenosis is appreciated grossly. PARASPINAL SOFT TISSUES: Unremarkable. OTHER FINDINGS: None. IMPRESSION: 1. No acute fracture or spondylolisthesis identified. Multilevel degenerative spondylosis affects primarily inferior cervical levels. 2. Variable upper to mid neural foraminal stenosis predominate at the right side, seen worst at the C4-5 right C5 root foramen which is severely stenosed due to uncovertebral and facet arthropathy. 3. Added characterization of the cervical spine can provided by MRI if clinically warranted.
--- NOTE | 2019-03-10 11:36 | CT ---
Date of service: 03/10/2019 PROCEDURE: CT Lumbar Spine without contrast HISTORY: increased falls and weakness after lumbar surgery COMPARISON: None available. TECHNIQUE: Axial computed tomography images were obtained of the lumbar spine without the use of intravenous contrast. Coronal and sagittal reformatted images were created and reviewed. Radiation dose: Total exam DLP = 587.93 mGy-cm. This CT exam was performed using one or more of the following dose reduction techniques: Automated exposure control, adjustment of the mA and/or kV according to patient size, and/or use of iterative reconstruction technique. FINDINGS: VERTEBRAE: Minimal grade 1 spondylolisthesis at L1-2 with L1 slightly posterior to L2. No spondylolysis throughout the examination. No compression fractures appreciated throughout the lumbar spine alignment normal inferior to the L2 vertebral body level down through the sacrum. Gross degenerative disease appreciated at L1-2, L3-4 and L4-5 where there is minimal residual disc space remaining combine with vacuum disc changes though there is only limited multilevel spondylosis throughout the lumbar spine. No additional spondylolisthesis. Patient status post posterior spinal fusion by transpedicular screws at L2 and L3 which are connected by rods at each side posteriorly. Further, patient seen to be status post bilateral L2 laminectomies. DISCS/SPINAL CANAL/NEURAL FORAMINA: L1-2: Moderate degenerative bilateral neural foraminal stenoses are appreciated due to osteophytes as well as spondylolisthesis with the central canal mildly stenosed due to spondylolisthesis and posterior osteophytic ridging. L2-3: The central canal is decompressed posteriorly by laminectomies bilaterally though the upper portion of this level remains mildly stenosed. Mild bilateral neural foraminal stenosis results from disc osteophyte complex lateral components symmetrically. Prior bilateral L2 laminectomies identified. L3-4: A large posterior disc bulge is appreciated combining with prominent facet arthropathy resulting in a severe central canal stenosis with reoh-ge-[id number] bilateral degenerative neural foraminal stenoses present. L4-5: Limited posterior disc bulge flattens the ventral thecal sac without causing generalized central canal stenosis. Mild bilateral degenerative neural foraminal stenoses are identified. L5-S1: Limited posterior osteophytic ridge is identified without central canal or neural foraminal stenosis bilaterally. PARASPINAL SOFT TISSUES: Unremarkable. OTHER FINDINGS: None. IMPRESSION: 1. No acute fractures identified. Grade 1 L1-2 spondylolisthesis is minimal in this patient status post limited bilateral laminectomies at L2 with posterior spinal fusion at L2 and L3 levels. 2. Decompression of the L2-3 disc interspace is appreciated with the upper portion at this level appearing mildly stenosed. Mild bilateral neural foraminal stenoses are degenerative at this level. 3. Severe degenerative central stenosis L3-4. 4. Limited multilevel bilateral degenerative neural foraminal stenoses.
[2019-03-10 14:54] VITALS: BP 157/88; PULSE 90; RESP 18; TEMP 98.6
--- NOTE | 2019-03-10 17:11 | RAD ---
Date of service: 03/10/2019 PROCEDURE: Left Wrist Radiographs. HISTORY: left wrist pain COMPARISON: None. TECHNIQUE: 4 views obtained. FINDINGS: BONES: There is a lucency appreciated at the dorsal cortex of the distal left radius but not the volar cortex. This may reflect deformity from prior fracture though subacute incomplete fracture is not excluded here. Consider follow-up radiography or MRI for added characterization of the distal left radius. None of the carpal bones appear fractured and only degenerative cortical sclerosis appears mild throughout the carpal carpal and carpal metacarpal articulations diffusely. JOINTS: No subluxation or dislocation. SOFT TISSUES: Normal. OTHER FINDINGS: None. IMPRESSION: Questionable subacute include incomplete fracture distal left radius for which follow-up radiography or MRI is advised for added characterization. No dislocation. Degenerative changes seen throughout the carpus without specific carpal bone fracture. No subluxation or dislocation identified.
--- NOTE | 2019-03-11 12:23 | ED PDOC ---
ED Additional Note - Date & Time of Evaluation Date of Evaluation: 03/11/19 Time of Evaluation: 12:20 - Physician Additional Note Physician Additional Note: PA Performing Radiology call backs - Wrist x-ray: FINDINGS: BONES: There is a lucency appreciated at the dorsal cortex of the distal left radius but not the volar cortex. This may reflect deformity from prior fracture though subacute incomplete fracture is not excluded here. Consider follow-up radiography or MRI for added characterization of the distal left radius. None of the carpal bones appear fractured and only degenerative cortical sclerosis appears mild throughout the carpal carpal and carpal metacarpal articulations diffusely. JOINTS: No subluxation or dislocation. SOFT TISSUES: Normal. OTHER FINDINGS: None. IMPRESSION: Questionable subacute include incomplete fracture distal left radius for which follow-up radiography or MRI is advised for added characterization. No dislocation. Degenerative changes seen throughout the carpus without specific carpal bone fracture. No subluxation or dislocation identified. Patient called and no answer at phone number provided. Voicemail left. Second attempt to be made.
--- NOTE | 2019-03-12 17:04 | ED PDOC ---
ED Additional Note - Date & Time of Evaluation Date of Evaluation: 03/12/19 Time of Evaluation: 17:00 - Physician Additional Note Physician Additional Note: Left wrist x-ray: FINDINGS: BONES: There is a lucency appreciated at the dorsal cortex of the distal left radius but not the volar cortex. This may reflect deformity from prior fracture though subacute incomplete fracture is not excluded here. Consider follow-up radiography or MRI for added characterization of the distal left radius. None of the carpal bones appear fractured and only degenerative cortical sclerosis appears mild throughout the carpal carpal and carpal metacarpal articulations diffusely. JOINTS: No subluxation or dislocation. SOFT TISSUES: Normal. OTHER FINDINGS: None. IMPRESSION: Questionable subacute include incomplete fracture distal left radius for which follow-up radiography or MRI is advised for added characterization. No dislocation. Degenerative changes seen throughout the carpus without specific carpal bone fracture. No subluxation or dislocation identified. Second attempt made to reach patient at number provided as well as emergency contact number provided. Voice message left at number on file for patient. Letter to be sent to address on file. <Marine Acosta - Last Filed: 03/12/19 17:02> - Physician Additional Note Physician Additional Note: pt returned call to ED, I explained results, she will return today for splint placement and followup instructions for orthopedics and neurology, imaging on discs to be provided also to patient when she returns./ <Ronald Joseph III - Last Filed: 03/13/19 10:06>
== END 2019-03-10 14:55 | disposition home or self-care (01) ==
LOC: H.ER 08:37
DX: M51.36 Other intervertebral disc degeneration, lumbar region (principal)
CPT/HCPCS: 72125; 72131; 73110; 80053; 85025; 96374; 96375; 99285; J2405; J2765; J7030